=== PATIENT | female | born 1965 | race Caucasian/White ===

== ENCOUNTER 2017-02-19 11:58 | Emergency (ER) | payer OTHER ==
[~2017-02-19] VITALS: Ht 149.9 cm; Wt 53.0 kg
[2017-02-19 12:18] VITALS: Ht 149.9 cm; Wt 53.0 kg
[2017-02-19 15:03] LABS: BASOPHILS % 0.3 % (0.0-2.0); EOSINOPHILS # 0.1 10^3/ul (0.0-0.5); EOSINOPHILS % 1.3 % (0.0-7.0); HEMOGLOBIN 13.3 g/dl (12.0-16.0); LYMPHOCYTES # 2.7 10^3/ul (0.8-2.9); LYMPHOCYTES % 38.2 % (15.0-51.0); MEAN CORPUSCULAR HEMOGLOBIN 31.8 pg (29.0-33.0); MEAN CORPUSCULAR HGB CONC 34.1 g/dl (32.0-37.0); MEAN CORPUSCULAR VOLUME 93.3 fl (82.0-101.0); MONOCYTE # 0.4 10^3/ul (0.3-0.9); MONOCYTES % 6.2 % (0.0-11.0); NEUTROPHILS % 53.9 % (39.0-77.0); PLATELET COUNT 400 10^3/UL (140-415); RED BLOOD COUNT 4.18 10^6/ul (4.20-5.40); RED CELL DISTRIBUTION WIDTH 11.9 % (11.5-14.5); WHITE BLOOD COUNT 7.1 10^3/ul (4.8-10.8)
[2017-02-19 15:24] LABS: ALBUMIN 4.4 g/dl (3.3-4.9); ALBUMIN/GLOBULIN RATIO 1.12; BILIRUBIN,INDIRECT 0.3 mg/dl (0-1.1); BILIRUBIN,TOTAL 0.3 mg/dl (0.2-1.3); CALCIUM 9.9 mg/dl (8.4-10.2); CREATININE 0.52 mg/dl (0.44-1.00); POTASSIUM 4.4 mmol/L (3.5-5.1); TOTAL PROTEIN 8.3 g/dl (6.1-8.1)
--- NOTE | 2017-02-19 16:05 | RADRPT ---
PROCEDURE: CT Abdomen and Pelvis without intravenous contrast. CLINICAL INDICATION: Intermittent periumbilical pain. . TECHNIQUE: CT scan of the abdomen and pelvis without intravenous contrast was performed on a multi -slice CT scanner. Coronal and sagittal reformatted images were obtained from the axial source image s. Images were reviewed on a high-resolution PACS workstation. Total DLP = 288.3 mGy-cm. CTDIvol = 5.5 mGy. One or more of the following dose reduction techniques were used: Automated exposure control. Adjustment of the mA and/or kV according to patient size. Use of iterative reconstruction technique. COMPARISON: None. FINDINGS: CT abdomen and pelvis: The lung bases are clear. The heart size is normal in size. The liver is normal in size and densit y without focal mass or intrahepatic biliary dilatation. The spleen is normal in size and homogeneo us in density. The pancreas as visualized is normal. The gallbladder shows no evidence of stones or distension . The adrenal glands are normal. The kidneys are symmetric in size. There is a non obstructing 3 mm stone in the right kidney. There is no evidence of obstructive uropathy.. The stomach is partially collapsed, but is grossly unremarkable. The small bowels are unremarkable. The colon and rectum are normal. There is no evidence of appendicitis or diverticulitis. The uteru s is normal. There is a 2 cm right ovarian cyst.. The bladder is normal. There is no abdominal or p elvic adenopathy, free fluid, free air, mass or mesenteric inflammation. The aorta is normal in caliber and course. The osseous structures are intact. No osteolytic or osteo blastic lesions are identified. The soft tissues are within normal limits. Lack of IV and oral con trast limits sensitivity of exam. IMPRESSION: 1. Nonobstructing 3 mm right renal calculus. 2. Right ovarian 2 cm cyst. 3. Otherwise unremarkable noncontrast CT abdomen and pelvis without acute pathology identified. RPTAT: EE .Dylan Nielson MD, Date Time Electronically viewed and signed by .Dylan Nielson MD, MD on 02/19/2017 16:05 .Armani/
--- NOTE | 2017-02-19 16:26 | ERD ---
ER Documentation Chief Complaint Date/Time DATE: 02/19/17 TIME: 16:25 Chief Complaint ABD PAIN X2 YEARS, WANTS ASSESSMENT, WAS TOLD HAS HERNIA HPI This is a 51-year-old female with no relevant medical problems presenting to the emergency department complaining of generalized abdominal pain for the past 2 years. Patient was seen at her primary care physician office and was sent here for evaluation. Patient has increased abdominal pain for the past 2 days. She denies any fever, nausea, vomiting, diarrhea. Denies taking any medications for this ROS All systems reviewed and are negative except as per history of present illness. Medications Home Meds Active Scripts Naproxen* (Naprosyn*) 500 Mg Tablet, 500 MG PO BID Y for PAIN AND/OR INFLAMMATION, #30 TAB Prov:ANA TENA PA-C 02/19/17 PMhx/Soc Hx Cardiac Disorders: Yes (HTN) Hx Miscellaneous Medical Probl: Yes (DM) Physical Exam Vitals Vital Signs Date Time Temp Pulse Resp B/P Pulse Ox O2 Delivery O2 Flow Rate FiO2 02/19/17 12:18 98.2 69 16 118/76 99 Physical Exam GENERAL: well-developed/well-nourished, in no apparent distress, non-toxic appearing HENT: NC/AT, moist mucous membranes EYES: Conjunctiva normal NECK: Supple, no lymphadenopathy PULM: CTA bilaterally, no rales, rhonchi, or wheezing heard CV: Normal S1S2, RRR, good capillary refill GI: Soft, non-distended, tender to palpation in all quadrants Normal bowel sounds, no masses or organomegaly felt on exam No gross peritonitis, no bruits Negative Rovsing, negative Urban, negative McBurney's point, Negative CVAT BACK: No masses EXT: No clubbing, cyanosis, or edema NEURO: Alert and Orientated SKIN: Intact, normal turgor PSYCH: Normal mood and mentation Result Diagram: 02/19/17 1448 02/19/17 1448 Results 24 hrs Laboratory Tests Test 02/19/17 14:48 02/19/17 16:37 White Blood Count 7.110^3/ul Red Blood Count 4.1810^6/ul Hemoglobin 13.3g/dl Hematocrit 39.0% Mean Corpuscular Volume 93.3fl Mean Corpuscular Hemoglobin 31.8pg Mean Corpuscular Hemoglobin Concent 34.1g/dl Red Cell Distribution Width 11.9% Platelet Count 30514^3/UL Mean Platelet Volume 10.0fl Neutrophils % 53.9% Lymphocytes % 38.2% Monocytes % 6.2% Eosinophils % 1.3% Basophils % 0.3% Nucleated Red Blood Cells % 0.0/100WBC Neutrophils # (Manual) 3.810^3/ul Lymphocytes # 2.710^3/ul Monocytes # 0.410^3/ul Eosinophils # 0.110^3/ul Basophils # 0.010^3/ul Nucleated Red Blood Cells # 0.010^3/ul Sodium Level 144mmol/L Potassium Level 4.4mmol/L Chloride Level 103mmol/L Carbon Dioxide Level 29mmol/L Anion Gap 16 Blood Urea Nitrogen 13mg/dl Creatinine 0.52mg/dl Glucose Level 95mg/dl Calcium Level 9.9mg/dl Total Bilirubin 0.3mg/dl Direct Bilirubin 0.00mg/dl Indirect Bilirubin 0.3mg/dl Aspartate Amino Transf (AST/SGOT) 28IU/L Alanine Aminotransferase (ALT/SGPT) 45IU/L Alkaline Phosphatase 106IU/L Total Protein 8.3g/dl Albumin 4.4g/dl Globulin 3.90g/dl Albumin/Globulin Ratio 1.12 Lipase 187U/L Bedside Urine pH (LAB) 5.5 Bedside Urine Protein (LAB) Negative Bedside Urine Glucose (UA) Negative Bedside Urine Ketones (LAB) Negative Bedside Urine Blood Trace-lysed Bedside Urine Nitrite (LAB) Negative Bedside Urine Leukocyte Esterase (L Negative Procedures/MDM 51-year-old female presents to the emergency department complaining of generalized abdominal pain for the past 2 years, patient was sent by her primary care physician for evaluation. On examination, patient appears well she stable vital signs. She does not seem to be in significant abdominal pain. Blood work was done. Lab work was drawn. CBC did not show any evidence of leukocytosis or anemia. CMP did not show any evidence of renal, liver, or electrolyte abnormalities. Lipase was normal. UA did not show any evidence of hemoglobin or urinary tract infection. CT of the abdomen and pelvis was done and showed a nonobstructing renal stone 2 mm and ovarian cyst. I discussed with patient to continue to follow-up with her primary care physician, discussed with her to follow-up with urologist and [employer]. Prescription for naproxen was provided. She understands and agrees with this plan Departure Diagnosis: Primary Impression: Nephrolithiasis Additional Impressions: Ovarian cyst Abdominal pain Condition: Stable ANA TENA PA-C Feb 19, 2017 16:26
[2017-02-19 16:31] LABS: URINE BLOOD (Dip) POC Trace-lysed (NEGATIVE)
[2017-02-19] MEDS ORDERED: NAPR-260 PO (16:42)
[2017-02-19 17:00] LABS: ADD UMIC YES; UR ASCORBIC ACID NEGATIVE (NEGATIVE); UR BILIRUBIN (Dip) NEGATIVE (NEGATIVE); UR BLOOD (Dip) NEGATIVE (NEGATIVE); UR CLARITY SLIGHTLY CLOUDY (CLEAR); UR COLOR YELLOW (YELLOW); UR GLUCOSE (Dip) NEGATIVE (NEGATIVE); UR KETONES (Dip) NEGATIVE (NEGATIVE); UR LEUKOCYTE ESTERASE (Dip) TRACE Leu/ul (NEGATIVE); UR MUCUS FEW /HPF (NONE SEEN); UR NITRITE (Dip) NEGATIVE (NEGATIVE); UR RBC 2 /HPF (0-5); UR SPECIFIC GRAVITY (Dip) 1.024 (1.003-1.030); UR SQUAMOUS EPITHELIAL CELL FEW /HPF (FEW); UR TOTAL PROTEIN (Dip) NEGATIVE (NEGATIVE); UR UROBILINOGEN (Dip) NEGATIVE (NEGATIVE)
[2017-02-19 17:58] VITALS: BP 137/75; PULSE 64; RESP 17; TEMP 97.9
== END 2017-02-19 17:55 | disposition home or self-care (01) ==
LOC: FTE 11:58
DX: N20.0 Calculus of kidney (principal); N83.201 Unspecified ovarian cyst, right side; I10 Essential (primary) hypertension; E11.9 Type 2 diabetes mellitus without complications
CPT/HCPCS: 74176; 80053; 81001; 81003; 83690; 85025